=== PATIENT | female | born 1970 | race Caucasian/White ===

== ENCOUNTER → 2018-04-04 11:03 | Outpatient (CLI) | payer OTHER, SELFPAY ==
--- NOTE | 2018-04-04 11:05 | DI.RAD.S_ITS ---
PROCEDURE: XR FOOT RT MIN 3V INDICATIONS: Right dorsal, midfoot pain TECHNIQUE: 3 views of the foot were acquired. COMPARISON: , , FOOT 3V LEFT, 04/28/2014, 11:54. FINDINGS: Bones: No fractures or dislocations. No suspicious bony lesions. There is moderate metatarsus primus varus and mild hallux valgus configuration of the first ray with bunion formation at the medial first metatarsal head Soft tissues: No tibiotalar joint effusion. Achilles tendon appears normal. IMPRESSION: Podiatry related findings as discussed, without trauma. Bunion formation medial first metatarsal head. Dictated by: Robin Khan M.D. on 04/04/2018 at 11:59 Approved by: Robin Khan M.D. on 04/04/2018 at 12:00
== END ==
PROVIDERS: PCP Registered Nurse; Visit Provider Registered Nurse
DX: M21.611 Bunion of right foot (principal); M79.671 Pain in right foot
CPT/HCPCS: 73630

== ENCOUNTER → 2018-11-14 07:43 | Outpatient (CLI) | payer OTHER, SELFPAY ==
--- NOTE | 2018-11-14 07:45 | DI.MG.S_ITS ---
BILATERAL DIGITAL SCREENING MAMMOGRAM 3D/2D WITH CAD: 11/14/2018 CLINICAL: Routine screening. Comparison is made to exams dated: 04/15/2015 mammogram, 01/19/2013 mammogram, and 09/06/2011 mammogram - [facility]. The tissue of both breasts is heterogeneously dense. This may lower the sensitivity of mammography. Current study was also evaluated with a Computer Aided Detection (CAD) system. No significant masses, calcifications, or other findings are seen in either breast. There has been no significant interval change. IMPRESSION: NEGATIVE There is no mammographic evidence of malignancy. A 1 year screening mammogram is recommended. This exam was interpreted at Station ID: [id number]. NOTE: For mammograms, a report in lay terms will be sent to the patient. Approximately 15% of breast malignancies will not be visualized mammographically. In the management of a palpable breast mass, a negative mammogram must not discourage biopsy of a clinically suspicious lesion. Electronically Signed By: Ru dash/breanna:11/14/2018 12:15:49 letter sent: Normal Exam ACR BI-RADS Category 1: Negative [id number]
[2018-11-14 09:18] LABS: Alanine Aminotransferase 31 IU/L (9-52); Albumin 4.1 g/dL (3.5-5.0); Albumin Globulin Ratio 1.2 (1.0-2.8); Alkaline Phosphatase 90 U/L (38-126); Aspartate Aminotransferase 29 IU/L (14-36); BUN Creatinine Ratio 12.9 (6-22); Bilirubin Total 0.3 mg/dL (0.2-1.3); Blood Urea Nitrogen 9 mg/dL (7-17); Calcium 9.3 mg/dL (8.4-10.2); Carbon Dioxide 27 mmol/L (22-32); Chloride 104 mmol/L (98-107); Cholesterol 180 mg/dL (140-199); Estimated Glomerular Filt Rate > 60.0 mL/min (>60); Globulin 3.3 g/dL (1.7-4.1); Glucose 98 mg/dL (70-100); HDL Cholesterol 52 mg/dL (40-60); HEMOLYSIS < 15 (0-50); LDL Cholesterol Calculated 108 mg/dL (<100); Potassium 4.9 mmol/L (3.4-5.1); Sodium 140 mmol/L (137-145); Total Protein 7.4 g/dL (6.3-8.2); Triglycerides 99 mg/dL (35-150)
[2018-11-14 09:40] LABS: Thyroid Stimulating Hormone 0.92 uIU/mL (0.47-4.68)
== END ==
PROVIDERS: PCP Registered Nurse; Visit Provider Registered Nurse
DX: Z12.31 Encounter for screening mammogram for malignant neoplasm of breast (principal); E66.9 Obesity, unspecified; E03.2 Hypothyroidism due to medicaments and other exogenous substances
CPT/HCPCS: 36415; 77063; 77067; 80053; 80061; 84443

== ENCOUNTER → 2018-12-31 13:25 | Outpatient (CLI) | payer OTHER, SELFPAY ==
--- NOTE | 2018-12-31 13:27 | DI.RAD.S_ITS ---
PROCEDURE: XR TOE LT MIN 2V INDICATIONS: Left foot pinky toes injury TECHNIQUE: 3 views of the left toe(s) acquired. COMPARISON: None. FINDINGS: Bones: Minimally displaced fracture of the proximal phalanx of the fifth toe. Soft tissues: No suspicious soft tissue densities. IMPRESSION: Minimally displaced fifth toe proximal phalanx fracture. Dictated by: Misael Rios M.D. on 12/31/2018 at 13:47 Approved by: Misael Rios M.D. on 12/31/2018 at 13:49
== END ==
PROVIDERS: PCP Registered Nurse; Visit Provider Registered Nurse
DX: S92.512A Displaced fracture of proximal phalanx of left lesser toe(s), initial encounter for closed fracture (principal); M79.675 Pain in left toe(s); M79.89 Other specified soft tissue disorders; X58.XXXA Exposure to other specified factors, initial encounter
CPT/HCPCS: 73660

== ENCOUNTER → 2019-03-05 08:50 | Outpatient (CLI) | payer OTHER, SELFPAY ==
[2019-03-05 10:42] LABS: Thyroid Stimulating Hormone 1.27 uIU/mL (0.47-4.68)
== END ==
PROVIDERS: PCP Registered Nurse; Visit Provider Registered Nurse
DX: E03.9 Hypothyroidism, unspecified (principal)
CPT/HCPCS: 36415; 84443

== ENCOUNTER 2019-05-14 14:12 | Day surgery (SDC) | payer OTHER, SELFPAY ==
--- NOTE | 2019-05-14 | PATH_ITS ---
[facility] Accession Number: [id number] . 01 Material submitted: . gastrointestinal site - GASTRIC POLYPS . 02 Diagnosis: Stomach, Polyps, Biopsies: Fundic gland polyps. Negative for Helicobacter organisms by immunohistochemistry. Negative for intestinal metaplasia. Negative for dysplasia and malignancy. . [facility] 05/19/2019 1533 Local . 02 Electronically signed: . Racheal Stafford MD, Pathologist NPI- [id number] . 01 Gross description: . GASTRIC POLYPS: Received in formalin are 3 fragment(s) of damon, soft tissue measuring 0.1 x 0.1 x 0.1 cm to 0.3 x 0.2 x 0.2 cm which is entirely submitted and submitted entirely in 1 cassette(s) /[facility] [place]/15/2019 1632 Local . 02 Microscopic: . An immunohistochemical stain was performed to evaluate for Helicobacter organisms and is negative. The control stain showed appropriate reactivity. . * This test was developed and its performance characteristics determined by [facility]. It has not been cleared or approved by the U.S. Food and Drug Administration. The FDA has determined that such clearance or approval is not necessary. This test is used for clinical purposes. It should not be regarded as investigational or for research. . 02 Pathologist provided ICD-10: R10.9, K21.9 . 02 CPT . 564286, M23357 Performed at: 01 [facility] [address] [place], [place], [place] [id number] MD Beto Gutierrez MD Phone: [phone] Performed at: 02 [facility] [place] [address] [place], [place] [id number] MD Racheal Stafford MD Phone: [phone]
--- NOTE | 2019-05-14 14:08 | PM.HP.1 ---
History of Present Illness History of Present Illness Date Patient Seen: 05/14/19 Time Patient Seen: 14:08 Chief complaint: [id number] Narrative: Patient presents for colorectal screening. They have never had any previous examination for such. On further history denies any recent gastrointestinal symptoms. No nausea, vomiting, abdominal pain, loss of appetite, unexplained weight loss, change in bowel habits, diarrhea, constipation, melena, hematochezia, or bright red blood per rectum. Patient History Medical History Abnormal Pap smear of cervix (Resolved 1990) ADHD (attention deficit hyperactivity disorder) (Chronic 2011) Depression (Chronic 2001) Elbow fracture, right (Resolved) Foot fracture, right (Resolved) Foot pain (Chronic 2005) Hayfever (Chronic 1990) Herpes (Chronic 1992) Irregular periods/menstrual cycles (Resolved) Left elbow fracture (Resolved) Left hand fracture (Resolved) Migraines (Chronic 1981) Sacral fracture (Resolved 11/25/12) Urinary incontinence (Chronic 2008) Uterine cancer (Acute) Vaginal delivery (Resolved) Surgical History Anesthesia (Resolved) History of toe surgery (Resolved 2010) Status post appendectomy (Resolved) Status post hysterectomy (Resolved 06/03/17) Status post tubal ligation (Resolved 2002) Family History Brother Age: 59 DMII (diabetes mellitus, type 2) IBS (irritable bowel syndrome) Essential hypertension High cholesterol Father Diabetes mellitus Heart disease Essential hypertension High cholesterol Cerebrovascular accident (CVA), unspecified mechanism Cardiac aneurysm Mother Diabetes mellitus Essential hypertension Mental health problem Anaphylactic shock Sister Age: 53 Hyperlipidemia Depression Sister Age: 61 Mental health problem Brother No problems noted. Social History Smoking Status: Never smoker alcohol intake: current Family & Social History Family History Brother Age: 59 DMII (diabetes mellitus, type 2) IBS (irritable bowel syndrome) Essential hypertension High cholesterol Father Diabetes mellitus Heart disease Essential hypertension High cholesterol Cerebrovascular accident (CVA), unspecified mechanism Cardiac aneurysm Mother Diabetes mellitus Essential hypertension Mental health problem Anaphylactic shock Sister Age: 53 Hyperlipidemia Depression Sister Age: 61 Mental health problem Brother No problems noted. Tobacco & Substance use: Smoking Status Never smoker alcohol intake current Meds Home Medications and Allergies Home Medications Medication Instructions Recorded Confirmed Type CA PANTOTHENATE/FOLIC ACID/VIT 1 tab PO QDAY #0 07/11/11 04/08/19 History (MULTIVITAMIN) lamotrigine [Lamictal] 200 mg PO SEE INSTRUCTIONS #30 tab 01/17/17 04/08/19 Rx venlafaxine [Effexor XR] 0 PO SEE INSTRUCTIONS #60 cer 01/17/17 04/08/19 Rx eletriptan [Relpax] 40 mg PO PRN PRN #10 tab 05/27/17 04/08/19 Rx lisdexamfetamine [Vyvanse] 70 mg PO #0 05/27/17 04/08/19 History trazodone 50 mg PO HS #0 05/27/17 04/08/19 History magnesium PO 04/24/18 04/08/19 History valacyclovir 500 mg tablet 500 mg PO TID #9 tab 05/27/18 04/08/19 Rx omeprazole 40 mg capsule,delayed 40 mg PO DAILY #120 cap 03/06/19 04/08/19 Rx release ranitidine HCl 300 mg capsule 300 mg PO BEDTIME #90 cap 03/06/19 04/08/19 Rx Allergies Allergy/AdvReac Type Severity Reaction Status Date / Time No Known Drug Allergies Allergy Unverified 04/08/19 10:30 Review of Systems Review of Systems ROS Unobtainable: All systems reviewed & are unremarkable except as noted in HPI and below Exam Narrative Exam Narrative: General-adult ___no acute distress, well nourished HEENT-moist mucous membranes, no scleral icterus Neck-supple with full range of motion, no lymphadenopathy Chest- no labored respirations, clear to auscultation bilaterally Cardiac-regular rate and rhythm Abdomen-soft, nontender, non distended Extremities-no edema, warm well perfused Neurological-alert and oriented x 3. No focal deficits Skin-normal temperature and turgor, no rashes or ulcers Assessment & Plan Assessment and plan (1) Screening for colon cancer: Current visit: No Status: Acute Assessment & Plan narrative: Insert endoscopy assessment plan
--- NOTE | 2019-05-14 14:43 | PM.PREOP ---
Pre-operative Note Interval Note History & Physical reviewed/Exam performed by Physician: Yes Changes to H&P: No ASA Class (for procedural sedation): I
[2019-05-14 14:46] VITALS: BMI 32.1
[2019-05-14 15:00] VITALS: BP 119/77; PULSE 79; RESP 15; TEMP 36.3; O2SAT 99
[2019-05-14] MEDS: SODIUM CHLORIDE 0.9% 1,000 ML 200 ML IV (15:03)
[2019-05-14] MEDS: LIDOCAINE 4% SOLN 50 ML 20 ML TOP (15:20)
--- NOTE | 2019-05-14 15:20 | PM.OP.ENDO ---
Operative Date/Time/Diagnoses Date of procedure: 05/14/19 Time of procedure: 15:20 Pre-op diagnosis: Gastroesophageal reflux Post-op diagnosis: same Procedure & Clinicians Study performed: Esophagoduodenoscopy Same procedure as scheduled: Yes Indications: 48-year-old female with longstanding gastroesophageal reflux presents for an EGD Surgeon: Onur Vidal Procedure Notes SCOAP/Timeout: Performed Procedure in detail: The scope was inserted into the mouth and advanced into the esophagus. The stomach was entered and insufflated. The pyloric channel was entered and the 1st portion of the duodenum was inspected and was negative for ulcers. The stomach was notable for numerous gastric polyps less than a cm and throughout the entirety of the stomach. Several biopsies of these polyps were taken the sites were found to be hemostatic. The scope was retroflexed and there was no evidence of hiatal hernia. Scope was then carefully withdrawn into the esophagus where the Z-line was observed there was no evidence of esophagitis or Marino's. The stomach was then desufflated the exam ended. Scope withdrawal time: NA Findings: other findings (numerous gastric polyps) Complications: none Impression: gastric polyps Post-procedure Recommendations: Continue medication(s) (omeprazole) Disposition: same day surgery
[2019-05-14] MEDS: fentaNYL 250 MCG/5 ML INJ IV (15:34)
[2019-05-14] MEDS: MIDAZOLAM 5 MG/5 ML VIAL IV (15:35)
[2019-05-14 15:38] VITALS: BP 125/76; PULSE 89; RESP 12; TEMP 36.3; O2SAT 94
[2019-05-14 15:43] VITALS: BP 130/75; PULSE 92; RESP 13; O2SAT 96
[2019-05-14 15:48] VITALS: BP 104/50; PULSE 90; RESP 14; O2SAT 95
[2019-05-14 15:50] VITALS: BP 123/68; PULSE 94; RESP 17; O2SAT 94
[2019-05-14 15:56] VITALS: BP 115/75; PULSE 95; RESP 14; TEMP 36.5; O2SAT 98
--- NOTE | 2019-05-19 18:54 | PM.HP.1 ---
History of Present Illness History of Present Illness Date Patient Seen: 05/19/19 Time Patient Seen: 18:55 Chief complaint: [id number] Narrative: 48-year-old female referred to the General surgery Clinic for evaluation of gastroesophageal reflux disease. She has chronic reflux for at least 5 years and typically experiences heart burn, no regurgitation, no asthma, no dysphagia. Her symptoms are relatively controlled with 40 mg of omeprazole daily, but she has breakthrough episodes espically triggered by spicy food. She has never had an upper endoscopy. She has no unintended weight loss, dysphagia, voice changes abdominal pain nausea vomiting. Patient History Medical History Abnormal Pap smear of cervix (Resolved 1990) ADHD (attention deficit hyperactivity disorder) (Chronic 2011) Depression (Chronic 2001) Elbow fracture, right (Resolved) Foot fracture, right (Resolved) Foot pain (Chronic 2005) Hayfever (Chronic 1990) Herpes (Chronic 1992) Irregular periods/menstrual cycles (Resolved) Left elbow fracture (Resolved) Left hand fracture (Resolved) Migraines (Chronic 1981) Sacral fracture (Resolved 11/25/12) Urinary incontinence (Chronic 2008) Uterine cancer (Acute) Vaginal delivery (Resolved) Surgical History Anesthesia (Resolved) History of toe surgery (Resolved 2010) Status post appendectomy (Resolved) Status post hysterectomy (Resolved 06/03/17) Status post tubal ligation (Resolved 2002) Family History Brother Age: 59 DMII (diabetes mellitus, type 2) IBS (irritable bowel syndrome) Essential hypertension High cholesterol Father Diabetes mellitus Heart disease Essential hypertension High cholesterol Cerebrovascular accident (CVA), unspecified mechanism Cardiac aneurysm Mother Diabetes mellitus Essential hypertension Mental health problem Anaphylactic shock Sister Age: 53 Hyperlipidemia Depression Sister Age: 61 Mental health problem Brother No problems noted. Social History household members: spouse Smoking Status: Never smoker alcohol intake: current Family & Social History Family History Brother Age: 59 DMII (diabetes mellitus, type 2) IBS (irritable bowel syndrome) Essential hypertension High cholesterol Father Diabetes mellitus Heart disease Essential hypertension High cholesterol Cerebrovascular accident (CVA), unspecified mechanism Cardiac aneurysm Mother Diabetes mellitus Essential hypertension Mental health problem Anaphylactic shock Sister Age: 53 Hyperlipidemia Depression Sister Age: 61 Mental health problem Brother No problems noted. Social History: household members spouse Tobacco & Substance use: Smoking Status Never smoker alcohol intake current Meds Home Medications and Allergies Home Medications Medication Instructions Recorded Confirmed Type CA PANTOTHENATE/FOLIC ACID/VIT 1 tab PO QDAY #0 07/11/11 04/08/19 History (MULTIVITAMIN) Vyvanse 70 mg PO DAILY #0 05/27/17 05/14/19 History eletriptan [Relpax] 40 mg PO PRN PRN #10 tab 05/27/17 05/14/19 Rx trazodone 50 mg PO HS #0 05/27/17 05/14/19 History magnesium PO 04/24/18 04/08/19 History valacyclovir 500 mg tablet 500 mg PO TID #9 tab 05/27/18 05/14/19 Rx omeprazole 40 mg capsule,delayed 40 mg PO DAILY #120 cap 03/06/19 05/14/19 Rx release ranitidine HCl 300 mg capsule 300 mg PO BEDTIME #90 cap 03/06/19 05/14/19 Rx lamotrigine [Lamictal] 400 mg PO BEDTIME 05/14/19 05/14/19 History venlafaxine [Effexor XR] 300 mg PO DAILY 05/14/19 05/14/19 History Allergies Allergy/AdvReac Type Severity Reaction Status Date / Time No Known Drug Allergies Allergy Verified 05/14/19 14:44 Review of Systems Review of Systems ROS Unobtainable: All systems reviewed & are unremarkable except as noted in HPI and below Exam Vital Signs (past 8 hours): Oxygen Delivery Method Room Air Oxygen Flow Rate 2 Narrative Exam Narrative: General-adult female no acute distress, well nourished HEENT-moist mucous membranes, no scleral icterus Neck-supple with full range of motion, no lymphadenopathy Chest- no labored respirations, clear to auscultation bilaterally Cardiac-regular rate and rhythm Abdomen-soft, nontender, non distended Extremities-no edema, warm well perfused Neurological-alert and oriented x 3. No focal deficits Skin-normal temperature and turgor, no rashes or ulcers Assessment & Plan Assessment and plan (1) GERD (gastroesophageal reflux disease): Qualifiers: Esophagitis presence: esophagitis presence not specified Qualified Code(s): K21.9 - Gastro-esophageal reflux disease without esophagitis Current visit: No Status: Chronic Assessment & Plan narrative: 48-year-old female with symptomatic gastroesophageal reflux disease. We discussed the nature of reflux disease and its potential complications including the development of Marino's and esophageal cancer. We discussed possible causes of her reflux disease including hiatal hernia as well as aggravating factors as related to her lifestyle. I recommended that she undergo esophagoduodenoscopy to assess for complications relating to longstanding reflux as well as evaluation for any anatomical factors contributing to her reflux. Her risk factors for the development of Barrets include chronic reflux, race and obesity. We discussed risks of the procedure including bleeding perforation missed diagnosis, need for further procedure, and sedation risks. Her questions have been answered and will schedule at her earliest convenience
== END 2019-05-14 16:16 | disposition home or self-care (01) ==
PROVIDERS: PCP Registered Nurse; Visit Provider Surgery
PROC: 0DJ08ZZ Inspection of Upper Intestinal Tract, Via Natural or Artificial Opening Endoscopic (ICD-10-PCS; CPT 43235; principal; 2019-05-14 16:00)
DX: K21.9 Gastro-esophageal reflux disease without esophagitis (principal); K31.7 Polyp of stomach and duodenum
CPT/HCPCS: 43239; J2250; J3010

== ENCOUNTER 2020-01-22 14:58 | Emergency (ER) | payer OTHER, SELFPAY ==
[2020-01-22 15:18] VITALS: BP 124/73; PULSE 87; RESP 16; TEMP 36.4; O2SAT 99; BMI 33.2
--- NOTE | 2020-01-22 15:24 | PC.NURSE ---
was spraying hose at home and states wearing loose slippery sandals. lost footing and fell over a baby stroller and another object injuring her L lateral foot. contusion to the lateral top of the foot and some swelling noted. able to partially bear weight. +CSM.
--- NOTE | 2020-01-22 15:26 | DI.RAD.S_ITS ---
PROCEDURE: XR FOOT LT MIN 3V INDICATIONS: fall TECHNIQUE: 3 views of the foot were acquired. COMPARISON: [facility], CR, XR FOOT RT MIN 3V, 04/04/2018, 10:52. [facility], CR, FOOT 3V LEFT, 04/28/2014, 11:54. FINDINGS: Bones: No fractures or dislocations. No suspicious bony lesions. There is a transverse fracture at the proximal diaphysis of the fifth metatarsal bone. Incidental note is made of mild metatarsus primus varus and hallux on this morphology. Soft tissues: No tibiotalar joint effusion. Achilles tendon appears normal. IMPRESSION: Acute appearing fracture across the base of the fifth metatarsal diaphysis. This may extend slightly into the articular surface medially. No additional trauma found. Dictated by: Robin Khan M.D. on 01/22/2020 at 16:12 Approved by: Robin Khan M.D. on 01/22/2020 at 16:13
--- NOTE | 2020-01-22 16:08 | ED.LOWEXIN ---
HPI - Extremity Injury (Lower) <JONNA Vallejo - Last Filed: 01/22/20 18:55> General Chief Complaint: Extremity Injury, Lower Stated Complaint: LEFT FOOT INJURY Time Seen by Provider: 01/22/20 15:18 Source: patient Mode of arrival: Wheelchair Limitations: no limitations History of Present Illness HPI Narrative: Of the patient's very pleasant 49-year-old female nonsmoker who presents with a chief complaint of left foot injury. She states she tripped over a hose and landed awkwardly on her left foot. She states she has history of left foot fracture. She states she was unable to weight bear afterwards. Denies any other injuries denies hitting her head any neck or back pain. Related Data Home Medications Medication Instructions Recorded Confirmed Vyvanse 70 mg PO DAILY #0 05/27/17 01/15/20 trazodone 50 mg PO HS #0 05/27/17 01/15/20 lamotrigine [Lamictal] 400 mg PO BEDTIME 05/14/19 01/15/20 venlafaxine [Effexor XR] 300 mg PO DAILY 05/14/19 01/15/20 calcium-magnesium 300 mg-300 mg 1 tab PO DAILY 01/15/20 01/15/20 tablet Previous Rx's Medication Instructions Recorded eletriptan [Relpax] 40 mg PO PRN PRN #10 tab 05/27/17 omeprazole 40 mg capsule,delayed 40 mg PO DAILY #120 cap 03/06/19 release valacyclovir 500 mg tablet 500 mg PO TID #9 tab 01/15/20 cimetidine 200 mg tablet 200 mg PO BEDTIME #90 tab 01/21/20 hydrocodone-acetaminophen [[place]] 1 tab PO Q4-6H PRN #10 tab 01/22/20 Allergies Allergy/AdvReac Type Severity Reaction Status Date / Time No Known Drug Allergies Allergy Verified 01/22/20 15:18 Review of Systems <JONNA Vallejo - Last Filed: 01/22/20 18:55> Review of Systems Narrative: GENERAL: Denies chills, fatigue, malaise, fever, sweats. HEENT: Denies sinus pain, ear pain, sore throat, difficulty swallowing, dizziness. RESPIRATORY: Denies dyspnea, cough, wheezing, hemoptysis, sputum. CARDIOVASCULAR: Denies chest pain, palpitations, orthopnea, edema, GASTROINTESTINAL: Denies nausea, vomiting, abdominal pain, diarrhea, constipation, melena. : Denies dysuria, frequency, incontinence, hematuria, urinary retention. MUSCULOSKELETAL: See HPI SKIN: Denies rash, skin lesions, or other NEUROLOGIC: Denies weakness, headache, numbness, change in speech, confusion, seizures, incoordination. PSYCHIATRIC: No concerning psychosocial issues. 12 point review of systems is negative except for those stated above Patient History <JONNA Vallejo - Last Filed: 01/22/20 18:55> Medical History Abnormal Pap smear of cervix (Resolved 1990) ADHD (attention deficit hyperactivity disorder) (Chronic 2011) Depression (Chronic 2001) Elbow fracture, right (Resolved) Epidermal cyst (Acute) Foot fracture, right (Resolved) Foot pain (Chronic 2005) Hayfever (Chronic 1990) Herpes (Chronic 1992) Irregular periods/menstrual cycles (Resolved) Left elbow fracture (Resolved) Left hand fracture (Resolved) Migraines (Chronic 1981) Sacral fracture (Resolved 11/25/12) Urinary incontinence (Chronic 2008) Uterine cancer (Acute) Vaginal delivery (Resolved) Surgical History Anesthesia (Resolved) History of toe surgery (Resolved 2010) Status post appendectomy (Resolved) Status post hysterectomy (Resolved 06/03/17) Status post tubal ligation (Resolved 2002) Family History Brother Age: 60 DMII (diabetes mellitus, type 2) IBS (irritable bowel syndrome) Essential hypertension High cholesterol Father Diabetes mellitus Heart disease Essential hypertension High cholesterol Cerebrovascular accident (CVA), unspecified mechanism Cardiac aneurysm Mother Diabetes mellitus Essential hypertension Mental health problem Anaphylactic shock Sister Age: 54 Hyperlipidemia Depression Sister Age: 62 Mental health problem Brother No problems noted. Social History household members: spouse Smoking Status: Never smoker alcohol intake: current Smoking Status: Never smoker alcohol intake frequency: holidays/special occasions only Substance Use Type: does not use Exam <JONNA Vallejo Last Filed: 01/22/20 18:55> Narrative Exam Narrative: GENERAL: This is a well-nourished, well-developed patient, in no acute distress HEAD: Atraumatic. Normocephalic. No temporal or scalp tenderness. EYES: Pupils equal round and reactive. Extraocular motions intact. No scleral icterus. No injection or drainage. ENT: Nose without bleeding, purulent drainage or septal hematoma. Throat without erythema, tonsillar hypertrophy or exudate. Uvula midline. Airway patent. NECK: Trachea midline. No JVD or lymphadenopathy. Supple, nontender, no meningeal signs. CARDIOVASCULAR: Regular rate and rhythm RESPIRATORY: No cough. No increased respiratory effort. No accessory muscle use. GASTROINTESTINAL: Abdomen soft, non-tender, nondistended. Extremities: Pain to palpation lateral aspect of left foot. Positive pedal pulses left foot. Wiggling left toes. Cap refill less than 2 seconds BACK: Nontender without deformity or crepitance. No flank tenderness. NEURO: AOx3. SKIN: No rash or erythema on visible skin. No erythema or ecchymosis noted on lateral aspect of left foot Initial Vital Signs Initial Vital Signs: Vital Signs Temperature 97.6 F 01/22/20 15:18 Pulse Rate 87 01/22/20 15:18 Respiratory Rate 16 01/22/20 15:18 Blood Pressure 124/73 01/22/20 15:18 Pulse Oximetry 99 01/22/20 15:18 <Roly Nick DO - Last Filed: 01/22/20 18:59> Initial Vital Signs Initial Vital Signs: Vital Signs Temperature 97.6 F 01/22/20 15:18 Pulse Rate 87 01/22/20 15:18 Respiratory Rate 16 01/22/20 15:18 Blood Pressure 124/73 01/22/20 15:18 Pulse Oximetry 99 01/22/20 15:18 Procedures <JONNA Vallejo Last Filed: 01/22/20 18:55> Orthopedic Splinting/Casting Injury #1: Side: left Lower Extremity Injury Location: foot Lower Extremity Immobilizer: post-op shoe Other Orthopedic Equipment: crutches Post splinting neuro exam: intact Post splinting vascular exam: intact Placed by: Nursing Course <JONNA Vallejo Last Filed: 01/22/20 18:55> Orders Ordered: ED Orders 01/22/20 15:26 XR foot LT min 3V Stat Discontinued Medications Hydrocodone Bitart/Acetaminophen ([place] 5/325) 1 tab PO NOW ONE Stop: 01/22/20 16:40 Last Admin: 01/22/20 17:13 Dose: 1 tab Documented by: LINH Vital Signs Vital signs: Vital Signs - 8 hr 01/22/20 15:18 01/22/20 17:43 Temperature 97.6 F Pulse Rate 87 74 Respiratory Rate 16 14 Blood Pressure 124/73 Blood Pressure [Right Arm] 127/63 Pulse Oximetry 99 99 <Roly Nick DO - Last Filed: 01/22/20 18:59> Orders Ordered: ED Orders 01/22/20 15:26 XR foot LT min 3V Stat Discontinued Medications Hydrocodone Bitart/Acetaminophen ([place] 5/325) 1 tab PO NOW ONE Stop: 01/22/20 16:40 Last Admin: 01/22/20 17:13 Dose: 1 tab Documented by: LINH Vital Signs Vital signs: Vital Signs - 8 hr 01/22/20 15:18 01/22/20 17:43 Temperature 97.6 F Pulse Rate 87 74 Respiratory Rate 16 14 Blood Pressure 124/73 Blood Pressure [Right Arm] 127/63 Pulse Oximetry 99 99 MDM - Extremity Injury (Lower) <JONNA Vallejo - Last Filed: 01/22/20 18:55> Imaging Data Extremity x-ray #1: Radiologist's Impression: [address] [address] XRay Report Signed Patient: Marylou Franco [facility]#: [id number] : 1970Acct:[id number] Age/Sex: 49 / FDate of Service: 01/22/20 Loc: ED Accession Number: [id number] Procedure: XR foot LT min 3V Ordering Provider: Chary Joy PROCEDURE: XR FOOT LT MIN 3V INDICATIONS: fall TECHNIQUE: 3 views of the foot were acquired. COMPARISON: [facility], [place], XR FOOT RT MIN 3V, 04/04/2018, 10:52. [facility], CR, FOOT 3V LEFT, 04/28/2014, 11:54. FINDINGS: Bones: No fractures or dislocations. No suspicious bony lesions. There is a transverse fracture at the proximal diaphysis of the fifth metatarsal bone. Incidental note is made of mild metatarsus primus varus and hallux on this morphology. Soft tissues: No tibiotalar joint effusion. Achilles tendon appears normal. IMPRESSION: Acute appearing fracture across the base of the fifth metatarsal diaphysis. This may extend slightly into the articular surface medially. No additional trauma found. Dictated by: Robin Khan M.D. on 01/22/2020 at 16:12 Approved by: Robin Khan M.D. on 01/22/2020 at 16:13 [facility] Narrative Medical decision making narrative: The patient is a 49-year-old female nonsmoker presents with a chief complaint of foot pain. She has a fracture on her x-ray of her 5th metatarsal. She is placed in a postoperative shoe, given [place] for pain, given crutches. She is neurovascularly intact throughout her stay in the emergency department. Discussed at length following up with primary care provider as well as [facility]. Patient has no questions or concerns upon discharge and states understanding return precautions as well as follow-up care. Discharge Plan Departure Patient Disposition: Home Clinical Impression: Closed fracture of fifth metatarsal bone Qualifiers: Encounter type: initial encounter Fracture alignment: nondisplaced Laterality: left Qualified Code(s): S92.355A - Nondisplaced fracture of fifth metatarsal bone, left foot, initial encounter for closed fracture Discharge Date/Time: 01/22/20 17:44 Instructions: How to Use Crutches, DI for Foot Fracture Activity Restrictions/Additional Instructions: Thank you for trusting us with your care today As I discussed, your x-rays concerning for a fracture of your 5th metatarsal Please use rest ice compression elevation. We have given you a postoperative shoe and crutches. Please follow-up with primary care provider as well as [facility] I have included the contact information below I sent a prescription of hydrocodone with Tylenol to [facility] You have been prescribed narcotic medications. While on these medications you cannot drive or operate heavy machinery. Additionally you cannot sign legal documents or perform any duties such as this. 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 Prescriptions: New hydrocodone-acetaminophen [[place]] 5-325 mg tablet 1 tab PO Q4-6H PRN (Reason: pain) Qty: 10 RF: 0 No Action eletriptan [Relpax] 40 MG tablet 40 mg PO PRN PRNQty: 10 RF: 2 trazodone 50 MG tablet 50 mg PO HS Qty: 0 RF: 0 Vyvanse 70 MG capsule 70 mg PO DAILY Qty: 0 RF: 0 omeprazole 40 mg capsule,delayed release(DR/EC) 40 mg PO DAILY Qty: 120 RF: 3 cimetidine 200 mg tablet 200 mg PO BEDTIME Qty: 90 RF: 0 calcium-magnesium 300-300 mg tablet 1 tab PO DAILY RF: 0 valacyclovir [Valtrex] 500 mg tablet 500 mg PO TID Qty: 9 RF: 0 lamotrigine [Lamictal] 200 MG tablet 400 mg PO BEDTIME RF: 0 venlafaxine [Effexor XR] 150 MG capsule,extended release 24hr 300 mg PO DAILY RF: 0 Referrals: [facility] [Provider Group] Nadir Noonan ARNP [Advanced Step Down Nurse] - Bibiana Mayfield ARNP [Primary Care Provider] - <Roly Nick, - Last Filed: 01/22/20 18:59> [facility] ED Attending [facility] Attestation: Dr Nick Co-Sign Statement: I was available for consultation during this patient's emergency department visit. This chart is signed by myself for administrative purposes only. I did not have direct contact with this patient during this visit. They were seen independently by the APC.
[2020-01-22] MEDS: HYDROCODONE/ACET 5/325 TABLET 1 TAB PO (17:13)
[2020-01-22 17:43] VITALS: BP 127/63; PULSE 74; RESP 14; O2SAT 99
== END 2020-01-22 17:44 | disposition home or self-care (01) ==
PROVIDERS: Emergency Provider Nurse Practitioner Family; PCP Registered Nurse
DX: S92.355A Nondisplaced fracture of fifth metatarsal bone, left foot, initial encounter for closed fracture (principal); W22.8XXA Striking against or struck by other objects, initial encounter
CPT/HCPCS: 73630; 99283; 99284

== ENCOUNTER → 2020-03-15 12:07 | Outpatient (CLI) | payer OTHER, SELFPAY ==
[2020-03-16 15:36] LABS: COVID19 Sendout Not Detected (Not Detect)
== END ==
PROVIDERS: PCP Registered Nurse; Visit Provider Physician Assistant
DX: Z01.812 Encounter for preprocedural laboratory examination (principal)
CPT/HCPCS: 87635

== ENCOUNTER 2020-03-18 12:16 | Day surgery (SDC) | payer OTHER, SELFPAY ==
[2020-03-15 10:55] VITALS: BMI 34.2
[2020-03-18] VITALS (9 sets, daily range): BP systolic 97–120; BP diastolic 51–79; PULSE 74–94; RESP 11–20; TEMP 35.9–36.8; O2SAT 84–98; BMI 34.2
--- NOTE | 2020-03-18 | DI.RAD.S_ITS ---
PROCEDURE: XR FOOT LT 2V INDICATIONS: ORIF 5TH METARSAL TECHNIQUE: For views of the foot were acquired. COMPARISON: [facility], CR, XR FOOT LT MIN 3V, 01/22/2020, 15:50. [facility], CR, XR FOOT RT MIN 3V, 04/04/2018, 10:52. FINDINGS: Bones: No fractures or dislocations, and normal alignment has been established by placement of a longitudinally oriented 5th metatarsal fixation screw, crossing an area of previously identified fracture at the proximal diaphysis in this area.. No suspicious bony lesions. Soft tissues: No tibiotalar joint effusion. Achilles tendon appears normal. IMPRESSION: Normal alignment after cancellous screw fracture fixation 5th metatarsal proximal diaphysis. Dictated by: Robin Khan M.D. on 03/18/2020 at 16:16 Approved by: Robin Khan M.D. on 03/18/2020 at 16:17
[2020-03-18] MEDS: LACTATED RINGERS 1,000 ML 42 ML IV (13:17)
--- NOTE | 2020-03-18 13:45 | PM.PREOP ---
Pre-operative Note COVID-19 COVID-19 status: Negative Interval Note History & Physical reviewed/Exam performed by Physician: Yes Changes to H&P: No
--- NOTE | 2020-03-18 14:11 | PM.OP.1 ---
Operative Date/Time/Diagnoses Date of procedure: 03/18/20 Time of procedure: 14:11 Pre-op diagnosis: Left 5th proximal metatarsal fracture. The metaphyseal diaphyseal junction.s99.192 Post-op diagnosis: same Procedure & Clinicians Procedure: Open reduction internal fixation Serrano fracture left CPT code 39114 Same procedure as scheduled: Yes Indications: Patient is a 49-year-old female with a left 5th metatarsal metadiaphyseal junction fracture. This happened approximately 6 weeks ago. She has been nonweightbearing. She presents to me as a consult regarding her fracture. She has persistent pain the fracture site persistent fracture presence on x-ray without any significant signs of healing. Discussed that this fracture can take over 20 weeks to heal with non operative treatment and does have a higher risk for nonunion or delayed union. We discussed surgical treatment would allow her to be weight-bearing at 2 weeks postop and heels more reliably in a more rapid fashion. The patient would like to proceed with surgical treatment. The risks and benefits of the procedure have been discussed with the patient even opportunity to ask questions. The risks of surgery include but are not limited to infection, malunion, nonunion, persistence of pain, damage to nerves and blood vessels, posttraumatic arthritis, DVT, PE, cardiopulmonary complications and . The patient expressed a thorough understanding of the risks and benefits of surgery and has elected to proceed. Consent was signed in the office. Surgeon: Cathryn Huston Click Yes if Unassisted: Yes Anesthesia Type: General and Local Operative Notes Findings: Metadiaphyseal junction fracture left foot 5th metatarsal Closure Type: primary Specimen(s): none sent Applied: implant(s) (Arthrex Serrano screw 5.5 x 45 mm solid) Estimated Blood Loss (mL): 2 Blood products transfused: none Tourniquet time (min): 32 Procedure in detail: Patient was seen in the preoperative area. Site of surgery was marked and informed consent confirmed. Final questions were answered. The patient was then brought back to the operating room by the anesthesia team in position on the operative table in supine position. A ipsilateral well-padded thigh tourniquet was placed. A contralateral SCD was placed. An ipsilateral thigh bump was placed. The left lower extremities prepped and draped in the standard sterile fashion. A formal time-out procedure was performed confirming the patient's side and site of surgery administration of appropriate preoperative antibiotics. All were in agreement. Attention was turned the left 5th metatarsal. The bony landmarks were marked out using fluoroscopy and a small incision approximately 1 cm proximal to the base of 5th metatarsal was as made through the skin. Blunt dissection was taken down to the level of the proximal aspect of the 5th metatarsal. The wire was placed in the high and inside position confirmed on multiplanar fluoroscopy. This was then overdrilled. And and next a sequential taps were utilized. Once there was good interference with the tapping were able to rotate the hole metatarsal with the tap this size screw was selected. The wire was measured. And a 5.5 x 45 mm screw was selected. The wires were then removed and the solid screw was advanced across the fracture site making sure that all of the threads across the fracture site and good compression was obtained. Once this was completed was confirmed on multiplanar fluoroscopy to be adequate alignment and compression. Tourniquet was released. The wound was irrigated and closed with 4-0 Monocryl and 4 0 nylon suture. A well-padded splint was placed and the patient was woken from anesthesia and taken to recovery room in good condition. There no immediate complications from this procedure. All counts were correct Complications: none Post-operative Condition: stable Disposition: PACU Plan for aftercare: Nonweightbearing and splint x2 weeks and follow up in the clinic with her boot. Will start weight-bearing at 2 weeks. Aspirin for DVT prophylaxis.
[2020-03-18] MEDS: CEFAZOLIN 2 GM/100 ML FROZ.PIGGY IV (14:18)
--- NOTE | 2020-03-18 14:45 | SUR.OPER ---
Supine on padded OR bed, head on pillow, arms secured on padded arm boards at <90 degrees abduction, legs uncrossed, safety belt at abdomen, tape over blanket over right lower leg. left leg prepped and draped in sterile field on blanket stacks. bump under left hip
[2020-03-18] MEDS: BUPIVACAINE 0.25% W/ EPI 30 ML VIAL INJ (14:53)
[2020-03-18] MEDS: OXYCODONE/ACETAMINOPHEN 5/325 TABLET 1 TAB PO ×2 (15:45→16:03)
[2020-03-18] MEDS: fentaNYL 100 MCG/2 ML INJ IV (15:59)
--- NOTE | 2020-03-18 16:46 | SUR.PHASEI ---
Patient vital signs stable except that she drops into the upper 80%'s O2 and then returns to the 90%'s on her own. Transferred to phase 2 and reported off to receiving RN. Placed patient on O2 monitor in phase 2 for continued O2 monitoring.
--- NOTE | 2020-03-18 16:52 | SUR.PHASEII ---
Pt rcvd in pacu 2, report from Rhonda, pt placed on oxygen sat machine continuous monitoring for borderline sats. Holding above 93, plan to monitor for 10 minutes. Pt VSS, capillary refill wnl to left foot.
--- NOTE | 2020-03-18 16:59 | SUR.PHASEII ---
Pt given all dc instructions by JATINDER Ellis and pt verbalizes understanding. Araselie called for p/u. Pt assisted getting dressed. oxygen sats maintained above 94% for over 10 minutes now.
--- NOTE | 2020-03-18 17:23 | SUR.PHASEII ---
Pt dcd in stable condition via wc to curbside private vehicle and . Reminded to fill the pain rx in discharge envelope with pt and both and pt verbalize understanding.
== END 2020-03-18 17:25 | disposition home or self-care (01) ==
PROVIDERS: PCP Registered Nurse; Referring Provider Orthopaedic Surgery Foot and Ankle Surgery; Visit Provider Orthopaedic Surgery Foot and Ankle Surgery
PROC: (CPT 28485; principal; 2020-03-18 13:45)
DX: S99.192A Other physeal fracture of left metatarsal, initial encounter for closed fracture (principal); W01.0XXA Fall on same level from slipping, tripping and stumbling without subsequent striking against object, initial encounter
CPT/HCPCS: 28485; 73620; 76000; J0690; J1100; J1885; J2250; J2405; J2704; J3010

== ENCOUNTER → 2021-02-09 10:27 | Outpatient (CLI) | payer OTHER, SELFPAY ==
[2021-02-09 11:52] LABS: Add Manual Diff / Slide Review NO; Basophils Absolute Auto 0 /uL (0-100); Basophils Percent Auto 0.6 % (0-2); Eosinophils Absolute Auto 100 /uL (0-450); Eosinophils Percent Auto 2.3 % (2-4); Hematocrit 41.2 % (36-46); Hemoglobin 13.9 g/dL (12.0-16.0); Lymphocytes Absolute Auto 1600 /uL (1100-4500); Mean Corpuscular HGB Conc 33.7 % (30-36); Mean Corpuscular Hemoglobin 30.5 PG (26-34); Mean Corpuscular Volume 90.6 fL (80-100); Monocytes Absolute Auto 400 /uL (0-900); Monocytes Percent Auto 6.6 % (3-14); Neutrophils Absolute Auto 3500 /uL (1500-7000); Neutrophils Percent Auto 62.5 % (50-75); Platelet Count 255 X10^3/uL (150-400); Red Blood Cell Count 4.55 X10^6/uL (4.0-5.2); Red Cell Distribution Width 13.2 % (11.6-14.8); White Blood Cell Count 5.6 X10^3/uL (4.5-11.0)
[2021-02-09 12:39] LABS: Total Iron Binding Capacity 285 ug/dL (265-497)
[2021-02-09 13:06] LABS: Ferritin 15 ng/mL (11-264)
[2021-02-09 13:37] LABS: Folate 11.2 ng/mL (2.76-20.0); Vitamin B12 425 pg/mL (239-931)
== END ==
PROVIDERS: PCP Nurse Practitioner Family; Referring Provider Registered Nurse; Visit Provider Registered Nurse
DX: D64.9 Anemia, unspecified (principal)
CPT/HCPCS: 36415; 82607; 82728; 82746; 83550; 85025

== ENCOUNTER 2022-10-01 18:39 | Emergency (ER) | payer OTHER, SELFPAY ==
[2022-10-01 18:50] VITALS: BP 132/67; PULSE 79; RESP 14; TEMP 36.6; O2SAT 100; BMI 33.0
--- NOTE | 2022-10-01 18:52 | DI.RAD.S_ITS ---
PROCEDURE: XR WRIST RT MIN 3V INDICATIONS: Fall, foot and wrist pain TECHNIQUE: 3 views of the wrist were acquired. COMPARISON: None. FINDINGS: Bones: No fractures or dislocations. No suspicious bony lesions. Soft tissues: No suspicious soft tissue calcifications. IMPRESSION: No visualized acute fracture or dislocation. However, if clinical concern and/or pain persist, short interval imaging followup in 7-10 days is recommended, as occult injury cannot be definitively excluded. Dictated by: Alice Knowles M.D. on 10/01/2022 at 19:24 Approved by: Alice Knowles M.D. on 10/01/2022 at 19:24
--- NOTE | 2022-10-01 18:52 | DI.RAD.S_ITS ---
PROCEDURE: XR FOOT RT MIN 3V INDICATIONS: Fall, foot and wrist pain TECHNIQUE: 3 views of the foot were acquired. COMPARISON: [facility] [place], [place], XR FOOT 3 VIEWS WEIGHT BEARING LEFT, 07/05/2020, 15:24. [facility], CR, XR FOOT LT 2V, 03/18/2020, 14:39. FINDINGS: Bones: No fractures or dislocations. No suspicious bony lesions. Soft tissues: No tibiotalar joint effusion. Achilles tendon appears normal. IMPRESSION: No visualized acute fracture or dislocation. However, if clinical concern and/or pain persist, short interval imaging followup in 7-10 days is recommended, as occult injury cannot be definitively excluded. Dictated by: Alice Knowles M.D. on 10/01/2022 at 19:24 Approved by: Alice Knowles M.D. on 10/01/2022 at 19:24
--- NOTE | 2022-10-01 19:36 | ED_ITS ---
HPI - General Adult General Chief complaint: Extremity Injury, Upper Stated complaint: broke? R hand, swelling,difficult to move Time Seen by Provider: 10/01/22 18:58 Source: patient Mode of arrival: Ambulatory Limitations: no limitations History of Present Illness HPI narrative: Patient is a 51-year-old female here for evaluation of a right hand injury and also a right foot injury. It occurred after she slipped and fell at home in her driveway. She has been ambulatory. It occurred several hours prior to arrival. No prior injuries to these areas. No other injuries from the event. Related Data Home Medications Medication Instructions Recorded Confirmed lisdexamfetamine 70 mg capsule 70 mg PO DAILY ##0 05/27/17 12/18/21 (Vyvanse) trazodone 50 mg tablet 50 mg PO HS ##0 05/27/17 12/18/21 lamotrigine 200 mg tablet 400 mg PO BEDTIME 05/14/19 12/18/21 (Lamictal) calcium-magnesium 300 mg-300 mg 1 tab PO DAILY 01/15/20 12/18/21 tablet lorazepam 0.5 mg tablet (Ativan) 0.5 mg PO DAILY PRN 07/07/20 12/18/21 Previous Rx's Medication Instructions Recorded clindamycin phosphate 1 % topical 1 applic topical DAILY #60 grams 03/14/21 gel esomeprazole magnesium 20 mg 20 mg PO DAILY #90 caps 03/14/21 capsule,delayed release eletriptan 40 mg tablet See Rx Instructions .Route 07/21/21 .COMPLEX #10 ea gabapentin 600 mg tablet 600 mg PO TID #90 tabs 12/28/21 Allergies Allergy/AdvReac Type Severity Reaction Status Date / Time lithium AdvReac Intermediate mouth sores Verified 10/01/22 18:50 Review of Systems Constitutional Constitutional: Reports system reviewed and no additional complaints, except as documented Musculoskeletal Musculoskeletal: Reports system reviewed and no additional complaints, except as documented Integumentary/Breasts Skin/Breast: Reports system reviewed and no additional complaints, except as documented Neurologic Neurologic: Reports system reviewed and no additional complaints, except as documented Patient History Medical History Abnormal Pap smear of cervix (1990) ADHD (attention deficit hyperactivity disorder) (2011) Anemia, unspecified Depression (2001) Dermatitis Elbow fracture, right Epidermal cyst Foot fracture, right Foot pain (2005) Hayfever (1990) Herpes (1992) Irregular periods/menstrual cycles Left elbow fracture Left hand fracture Migraines (1981) Onychomycosis Onychomycosis Perioral dermatitis Sacral fracture (11/25/12) Therapeutic drug monitoring Urinary incontinence (2008) Uterine cancer (2015) Vaginal delivery Surgical History Anesthesia History of toe surgery (2010) Status post appendectomy Status post hysterectomy (06/03/17) Status post tubal ligation (2002) Family History Brother Age: 62 DMII (diabetes mellitus, type 2) IBS (irritable bowel syndrome) Essential hypertension High cholesterol Father Diabetes mellitus Heart disease Essential hypertension High cholesterol Cerebrovascular accident (CVA), unspecified mechanism Cardiac aneurysm Mother Diabetes mellitus Essential hypertension Mental health problem Anaphylactic shock Sister Age: 56 Hyperlipidemia Depression Sister Age: 64 Mental health problem Brother No problems noted. Social History household members: spouse Smoking Status: Never smoker alcohol intake: current Smoking Status: Never smoker alcohol intake frequency: holidays/special occasions only Substance Use Type: does not use Exam Initial Vital Signs Initial Vital Signs: Vital Signs Temperature 97.9 F 10/01/22 18:50 Pulse Rate 79 10/01/22 18:50 Respiratory Rate 14 10/01/22 18:50 Blood Pressure 132/67 10/01/22 18:50 Pulse Oximetry 100 10/01/22 18:50 Oxygen Delivery Method 10/01/22 18:50 HENGA Head: normal to inspection Skin Other: Skin abrasion to the ulnar aspect of the right little finger at the level of the PIP joint. Neuro Sensory Exam: no sensory deficits noted Extrem Other: Discomfort along the right little finger and also the metacarpal of the right hand. She is no snuffbox tenderness. No tenderness of the right thumb. Patient also has discomfort over the MTP joint of the right great toe. This is the volar aspect. The rest of her right foot and ankle were unremarkable. Course Orders Ordered: ED Orders 10/01/22 18:52 XR foot RT min 3V Stat XR wrist RT min 3V Stat Vital Signs Vital signs: Vital Signs - 8 hr 10/01/22 18:50 10/01/22 19:44 Temperature 97.9 F Pulse Rate 79 77 Respiratory Rate 14 16 Blood Pressure 132/67 126/73 Pulse Oximetry 100 100 Oxygen Delivery Method Room Air Room Air Medical Decision Making Imaging Data Extremity x-ray #1: Radiologist's Impression: [address] [address] XRay Report Signed Patient: Marylou Franco MR#: [id number] : 1970 Acct:[id number] Age/Sex: 51 / F Date of Service: 10/01/22 Loc: ED Accession Number: [id number] ?? Procedure: XR foot RT min 3V Ordering Provider: Roly Nick D.O. PROCEDURE:? XR FOOT RT MIN 3V ? INDICATIONS:? Fall, foot and wrist pain ? TECHNIQUE:? 3 views of the foot were acquired.? ? COMPARISON:? [facility], CR, XR FOOT 3 VIEWS WEIGHT BEARING LEFT, 07/05/2020, 15:24.? [facility], CR, XR FOOT LT 2V, 03/18/2020, 14:39. ? FINDINGS:? ? Bones:? No fractures or dislocations.? No suspicious bony lesions.? ? Soft tissues:? No tibiotalar joint effusion.? Achilles tendon appears normal.? ? ? IMPRESSION:? No visualized acute fracture or dislocation. However, if clinical concern and/or pain persist, short interval imaging followup in 7-10 days is recommended, as occult injury cannot be definitively excluded. ? ? Dictated by: Alice Knowles M.D. on 10/01/2022 at 19:24 ? ? Approved by: Alice Knowles M.D. on 10/01/2022 at 19:24?? Extremity x-ray #2: Radiologist's Impression: [address] [address] XRay Report Signed Patient: Marylou Franco MR#: [id number] : 1970 Acct:[id number] Age/Sex: 51 / F Date of Service: 10/01/22 Loc: ED Accession Number: [id number] ?? Procedure: XR wrist RT min 3V Ordering Provider: Roly Nick D.O. PROCEDURE:? XR WRIST RT MIN 3V ? INDICATIONS: Fall, foot and wrist pain ? TECHNIQUE:? 3 views of the wrist were acquired.? ? COMPARISON:? None. ? FINDINGS:? ? Bones:? No fractures or dislocations.? No suspicious bony lesions.? ? Soft tissues:? No suspicious soft tissue calcifications.? ? IMPRESSION:? No visualized acute fracture or dislocation. However, if clinical concern and/or pain persist, short interval imaging followup in 7-10 days is recommended, as occult injury cannot be definitively excluded. ? ? Dictated by: Alice Knowles M.D. on 10/01/2022 at 19:24 ? ? Approved by: Alice Knowles M.D. on 10/01/2022 at 19:24?? [facility] Narrative Medical decision making narrative: X-ray shows no signs of acute fractures. She does have a noninfused sesamoid bone and she is somewhat tender over this area although the Radiology read shows no acute pathology. I did discuss this with her. We discussed that if her symptoms do not improve the next couple days that she should be re-evaluated that she may need further evaluation of this. The contusions of her hand need no specific intervention. No indication for immobilization. Will discharge patient home with return precautions. She expressed understanding Discharge Plan Departure Patient Disposition: Home Clinical Impression: Injury of hand, right, Crush injury of right foot Instructions: How To Perform RICE (Rest, Ice, Compress, Elevate) Activity Restrictions/Additional Instructions: I recommend that you continue with conservative measures such as Tylenol/ib uprofen and also ice. If your foot continues to hurt after the next several days you may need re-evaluated like we discussed. Return to the emergency department for any new symptoms. Prescriptions: No Action trazodone 50 MG tablet 50 mg PO HS Qty: 0 Vyvanse 70 MG capsule 70 mg PO DAILY Qty: 0 eletriptan 40 mg tablet See Rx Instructions .ROUTE .COMPLEX Qty: 10 1RF Dose Instruction: TAKE ONE TABLET BY MOUTH AT ONSET OF HEADACHE IF NEEDED Rx Instructions: TAKE ONE TABLET BY MOUTH AT ONSET OF HEADACHE IF NEEDED gabapentin 600 mg tablet 600 mg PO TID Qty: 90 0RF Rx Instructions: NEED TO ESTABLISH WITH NEW PROVIDER FOR FURTHER REFILLS. THANK YOU! lorazepam [Ativan] 0.5 mg tablet 0.5 mg PO DAILY PRN calcium-magnesium 300-300 mg tablet 1 tab PO DAILY esomeprazole magnesium 20 mg capsule,delayed release(DR/EC) 20 mg PO DAILY Qty: 90 0RF clindamycin phosphate 1 % gel 1 applic topical DAILY Qty: 60 0RF lamotrigine [Lamictal] 200 MG tablet 400 mg PO BEDTIME Referrals: Nadir Noonan ARNP [Primary Care Provider] - Stand Alone Forms: Patient Portal/API
[2022-10-01 19:44] VITALS: BP 126/73; PULSE 77; RESP 16; O2SAT 100
== END 2022-10-01 19:45 | disposition home or self-care (01) ==
PROVIDERS: Emergency Provider Emergency Medicine; PCP Nurse Practitioner Family
DX: S69.91XA Unspecified injury of right wrist, hand and finger(s), initial encounter (principal); S97.81XA Crushing injury of right foot, initial encounter; W01.0XXA Fall on same level from slipping, tripping and stumbling without subsequent striking against object, initial encounter
CPT/HCPCS: 73110; 73630; 99283

== ENCOUNTER → 2022-12-19 09:21 | Outpatient (CLI) | payer OTHER, SELFPAY ==
[2022-12-19 11:40] LABS: Hematocrit 40.5 % (36-46); Hemoglobin 13.7 g/dL (12.0-16.0); Mean Corpuscular HGB Conc 33.9 % (30-36); Mean Corpuscular Hemoglobin 30.3 PG (26-34); Mean Corpuscular Volume 89.3 fL (80-100); Platelet Count 238 X10^3/uL (150-400); Red Blood Cell Count 4.53 X10^6/uL (4.0-5.2); Red Cell Distribution Width 12.8 % (11.6-14.8); White Blood Cell Count 4.4 X10^3/uL (4.5-11.0)
[2022-12-19 12:12] LABS: Alanine Aminotransferase 18 IU/L (<35); Albumin Globulin Ratio 1.3 (1.0-2.8); Alkaline Phosphatase 94 U/L (38-126); Aspartate Aminotransferase 22 IU/L (14-36); BUN Creatinine Ratio 14.3 (6-22); Bilirubin Total 0.4 mg/dL (0.2-1.3); Blood Urea Nitrogen 10 mg/dL (7-17); Calcium 8.8 mg/dL (8.4-10.2); Carbon Dioxide 28 mmol/L (22-32); Chloride 105 mmol/L (98-107); Cholesterol 196 mg/dL (140-199); Estimated Glomerular Filt Rate > 60 mL/min (>60); Glucose 89 mg/dL (70-100); HDL Cholesterol 51 mg/dL (40-60); HEMOLYSIS < 15 (0-50); LDL Cholesterol Calculated 121 mg/dL (<100); Potassium 4.6 mmol/L (3.4-5.1); Sodium 141 mmol/L (137-145); Triglycerides 122 mg/dL (35-150)
[2022-12-19 12:39] LABS: TSH w/ Reflex to FT4 0.98 uIU/mL (0.47-4.68)
== END ==
PROVIDERS: PCP Registered Nurse Diabetes Educator; Referring Provider Registered Nurse Diabetes Educator; Visit Provider Registered Nurse Diabetes Educator
DX: Z00.00 Encounter for general adult medical examination without abnormal findings (principal)
CPT/HCPCS: 36415; 80053; 80061; 84443; 85027

== ENCOUNTER → 2023-12-18 11:45 | Outpatient (CLI) | payer OTHER, SELFPAY ==
--- NOTE | 2023-12-18 11:46 | DI.MG.S_ITS ---
BILATERAL DIGITAL SCREENING MAMMOGRAM 3D/2D WITH CAD: 12/18/2023 CLINICAL: Routine screening. Comparison is made to exams dated: 11/14/2018 mammogram, 04/15/2015 mammogram, and 01/19/2013 mammogram - [facility]. There are scattered areas of fibroglandular density in both breasts (category b / 25%-50% glandular tissue). Current study was also evaluated with a Computer Aided Detection (CAD) system. No significant masses, calcifications, or other findings are seen in either breast. There has been no significant interval change. IMPRESSION: NEGATIVE There is no mammographic evidence of malignancy. A 1 year screening mammogram is recommended. Based on the Tyrer Cuzick model (a risk assessment model) the patient's lifetime risk is 6.7% and her 10 year risk is 1.9%. According to the ACR, ACS, and NCCN guidelines, an annual breast MRI exam along with mammogram is recommended if the patient's lifetime risk is 20% or greater. This exam was interpreted at Station ID: [id number]. NOTE: For mammograms, a report in lay terms will be sent to the patient. Approximately 15% of breast malignancies will not be visualized mammographically. In the management of a palpable breast mass, a negative mammogram must not discourage biopsy of a clinically suspicious lesion. Electronically Signed By: Cheri kuo/breanna:12/18/2023 13:15:02 letter sent: Normal Exam ACR BI-RADS Category 1: Negative [id number]
== END ==
PROVIDERS: PCP Registered Nurse Diabetes Educator; Referring Provider Registered Nurse Diabetes Educator; Visit Provider Registered Nurse Diabetes Educator
DX: Z12.31 Encounter for screening mammogram for malignant neoplasm of breast (principal); R92.323 Mammographic fibroglandular density, bilateral breasts
CPT/HCPCS: 77063; 77067

== ENCOUNTER 2024-03-26 08:23 | Day surgery (SDC) | payer OTHER, SELFPAY ==
[2024-03-26] MEDS: LACTATED RINGERS 1,000 ML 42 ML IV (08:45)
--- NOTE | 2024-03-26 08:51 | P.HP_ITS ---
History of Present Illness History of Present Illness Date Patient Seen: 03/26/24 Time Patient Seen: 08:51 Chief complaint: SDC Narrative: Marylou is a 53-year-old woman here for colonoscopy. She has never had 1 before. No known family history of colon cancer. [facility] Medical History Dyslipidemia History of uterine cancer Migraine with aura, not intractable, without status migrainosus Onychomycosis Perioral dermatitis Dermatitis Anemia, unspecified Onychomycosis Therapeutic drug monitoring Epidermal cyst Uterine cancer (2015) Left elbow fracture Elbow fracture, right Foot fracture, right Left hand fracture Urinary incontinence (2008) Abnormal Pap smear of cervix (1990) Herpes (1992) Irregular periods/menstrual cycles Foot pain (2005) Migraines (1981) ADHD (attention deficit hyperactivity disorder) (2011) Depression (2001) Hayfever (1990) Sacral fracture (11/25/12) Vaginal delivery Bipolar affective disorder (04/12/16) Surgical History Anesthesia History of toe surgery (2010) Status post hysterectomy (06/03/17) Status post appendectomy Status post tubal ligation (2002) Family History Brother Age: 64 DMII (diabetes mellitus, type 2) IBS (irritable bowel syndrome) Essential hypertension High cholesterol Father Diabetes mellitus Heart disease Essential hypertension High cholesterol Cerebrovascular accident (CVA), unspecified mechanism Cardiac aneurysm Mother Diabetes mellitus Essential hypertension Mental health problem Anaphylactic shock Sister Age: 58 Hyperlipidemia Depression Sister Age: 66 Mental health problem Brother No problems noted. Social History household members: spouse Smoking Status: Never smoker alcohol intake: current Meds Home Medications and Allergies Home Medications Medication Instructions Recorded Confirmed Type lisdexamfetamine 70 mg capsule 70 mg PO DAILY ##0 05/27/17 03/26/24 History (Vyvanse) trazodone 50 mg tablet 50 mg PO HS ##0 05/27/17 03/26/24 History lamotrigine 200 mg tablet 400 mg PO BEDTIME 05/14/19 03/26/24 History (Lamictal) lorazepam 0.5 mg tablet (Ativan) 0.5 mg PO DAILY PRN Anxiety 07/07/20 03/26/24 History bupropion HCl 300 mg 24 hr tablet, 300 mg PO QAM 12/11/22 03/26/24 History extended release (Wellbutrin XL) eletriptan 40 mg tablet See Rx Instructions PO .COMPLEX 12/11/22 03/26/24 Rx #10 tabs venlafaxine 75 mg capsule,extended 75 mg PO BID 01/02/23 03/26/24 History release 24 hr valacyclovir 500 mg tablet 500 mg PO BID #30 tabs 05/28/23 03/26/24 Rx (Valtrex) Allergies Allergy/AdvReac Type Severity Reaction Status Date / Time lithium AdvReac Intermediate mouth sores Verified 03/26/24 08:39 Exam Const General: No acute distress Resp Effort & Inspection: normal respiratory effort Assessment & Plan Assessment and plan (1) Screening for colon cancer: Status: Acute Plan We reviewed the risks and benefits of colonoscopy for colon cancer screening and she would like to proceed. Time-Based Coding :: [TOTAL MINUTES] spent with patient and on the chart (including review of chart, obtaining history, exam, reviewing outside data, placing orders, documenting exam and treatment plan, and counseling patient) on [DATE].
[2024-03-26 08:57] VITALS: BP 128/79; PULSE 77; RESP 18; TEMP 35.9; O2SAT 98
--- NOTE | 2024-03-26 09:32 | PM.OP.COLON ---
Operative Date/Time/Diagnoses Date of procedure: 03/26/24 Time of procedure: 09:33 Pre-op diagnosis: Colon cancer screening Post-op diagnosis: same Procedure & Clinicians Study performed: Colonoscopy (aborted) Same procedure as scheduled: Yes Surgeon: Dick Street Procedure Notes Procedure in detail: Surgeon: Dick Street MD Anesthesia: Leeann Michaels MD Procedure: The patient was brought to the endoscopy suite, placed in left lateral decubitus position. The patient was connected to monitoring devices. A time-out was performed. Sedation was administered. Once the patient was adequately sedated, a digital rectal exam was performed and was normal. The scope was then inserted and advanced to the ascending colon. The prep was inadequate to safely complete the procedure. The procedure was terminated. The patient was awakened and brought to recovery. Scope withdrawal time: Not applicable Sedation time: 3 minutes EBL: None Findings: Incomplete prep Post-procedure Disposition: PACU
[2024-03-26 09:38] VITALS: BP 105/69; PULSE 72; RESP 16; TEMP 36.8; O2SAT 95
[2024-03-26 09:43] VITALS: BP 106/68; PULSE 81; RESP 13; O2SAT 96
[2024-03-26 09:47] VITALS: BP 107/69; PULSE 78; RESP 14; O2SAT 97
[2024-03-26 09:48] VITALS: BP 105/77; PULSE 76; RESP 14; TEMP 36.8; O2SAT 98
== END 2024-03-26 09:56 | disposition home or self-care (01) ==
PROVIDERS: PCP Registered Nurse Diabetes Educator; Referring Provider Surgery; Visit Provider Surgery
PROC: 0DJD8ZZ Inspection of Lower Intestinal Tract, Via Natural or Artificial Opening Endoscopic (ICD-10-PCS; CPT 45378; principal; 2024-03-26 09:15)
DX: Z12.11 Encounter for screening for malignant neoplasm of colon (principal); Z53.09 Procedure and treatment not carried out because of other contraindication
CPT/HCPCS: 45378; J2704

== ENCOUNTER 2024-04-16 11:50 | Day surgery (SDC) | payer OTHER, SELFPAY ==
[2024-04-16] MEDS: LACTATED RINGERS 1,000 ML 42 ML IV (12:01)
[2024-04-16 12:06] VITALS: BP 125/77; PULSE 79; RESP 16; TEMP 36.4; O2SAT 99
--- NOTE | 2024-04-16 12:50 | PM.HP.1 ---
History of Present Illness History of Present Illness Date Patient Seen: 04/16/24 Time Patient Seen: 12:50 Chief complaint: [facility] [place] Narrative: Marylou is a 53-year-old woman here for her first colonoscopy. She attempted a colonoscopy earlier this month but the prep was inadequate. This time she was repeated the prep with 2 days of clear liquids with good results. [facility] Medical History Dyslipidemia History of uterine cancer Migraine with aura, not intractable, without status migrainosus Onychomycosis Perioral dermatitis Dermatitis Anemia, unspecified Onychomycosis Therapeutic drug monitoring Epidermal cyst Uterine cancer (2015) Left elbow fracture Elbow fracture, right Foot fracture, right Left hand fracture Urinary incontinence (2008) Abnormal Pap smear of cervix (1990) Herpes (1992) Irregular periods/menstrual cycles Foot pain (2005) Migraines (1981) ADHD (attention deficit hyperactivity disorder) (2011) Depression (2001) Hayfever (1990) Sacral fracture (11/25/12) Vaginal delivery Bipolar affective disorder (04/12/16) Surgical History Anesthesia History of toe surgery (2010) Status post hysterectomy (06/03/17) Status post appendectomy Status post tubal ligation (2002) Family History Brother Age: 64 DMII (diabetes mellitus, type 2) IBS (irritable bowel syndrome) Essential hypertension High cholesterol Father Diabetes mellitus Heart disease Essential hypertension High cholesterol Cerebrovascular accident (CVA), unspecified mechanism Cardiac aneurysm Mother Diabetes mellitus Essential hypertension Mental health problem Anaphylactic shock Sister Age: 58 Hyperlipidemia Depression Sister Age: 66 Mental health problem Brother No problems noted. Social History household members: spouse Smoking Status: Never smoker alcohol intake: current Meds Home Medications and Allergies Home Medications Medication Instructions Recorded Confirmed Type lisdexamfetamine 70 mg capsule 70 mg PO DAILY ##0 05/27/17 04/16/24 History (Vyvanse) trazodone 50 mg tablet 50 mg PO HS ##0 05/27/17 04/16/24 History lamotrigine 200 mg tablet 400 mg PO BEDTIME 05/14/19 04/16/24 History (Lamictal) lorazepam 0.5 mg tablet (Ativan) 0.5 mg PO DAILY PRN Anxiety 07/07/20 04/16/24 History bupropion HCl 300 mg 24 hr tablet, 300 mg PO QAM 12/11/22 04/16/24 History extended release (Wellbutrin XL) eletriptan 40 mg tablet See Rx Instructions PO .COMPLEX 12/11/22 04/16/24 Rx #10 tabs venlafaxine 75 mg capsule,extended 75 mg PO BID 01/02/23 04/16/24 History release 24 hr valacyclovir 500 mg tablet 500 mg PO BID #30 tabs 05/28/23 04/16/24 Rx (Valtrex) Allergies Allergy/AdvReac Type Severity Reaction Status Date / Time lithium AdvReac Intermediate mouth sores Verified 04/16/24 12:02 Exam Vital Signs (past 8 hours): - 04/16/24 12:06 Temperature 97.6 F Pulse Rate 79 Respiratory Rate 16 Blood Pressure 125/77 Pulse Oximetry 99 Oxygen Delivery Method Room Air Oxygen Delivery Method Room Air Const General: healthy appearing Resp Effort & Inspection: normal respiratory effort Assessment & Plan Assessment and plan (1) Screening for colon cancer: Status: Acute Plan We reviewed the risks and benefits of colonoscopy for colon cancer screening and she would like to proceed. Time-Based Coding :: [TOTAL MINUTES] spent with patient and on the chart (including review of chart, obtaining history, exam, reviewing outside data, placing orders, documenting exam and treatment plan, and counseling patient) on [DATE].
--- NOTE | 2024-04-16 13:16 | PM.OP.COLON ---
Operative Date/Time/Diagnoses Date of procedure: 04/16/24 Time of procedure: 13:16 Pre-op diagnosis: Colon cancer screening Post-op diagnosis: same Procedure & Clinicians Study performed: Colonoscopy Same procedure as scheduled: Yes Surgeon: Dick Street Procedure Notes Procedure in detail: Surgeon: Dick Street MD Anesthesia: Courtney Mirza CRNA Procedure: The patient was brought to the endoscopy suite, placed in left lateral decubitus position. The patient was connected to monitoring devices. A time-out was performed. Sedation was administered. Once the patient was adequately sedated, a digital rectal exam was performed and was normal. The scope was then inserted and advanced to the cecum where the appendiceal orifice was identified and photographed. The scope was then slowly withdrawn over greater than 6 minutes. The mucosa was thoroughly inspected. No polyps or other abnormalities were found. The scope was retroflexed in the rectum. The scope was straightened and removed. The patient was awakened and brought to recovery. Scope withdrawal time: 7 minutes Sedation time: 13 minutes EBL: 0 Findings: Normal colon Post-procedure Recommendations: Colonoscopy in 10 years Disposition: PACU
[2024-04-16 13:18] VITALS: BP 128/76; PULSE 79; RESP 16; TEMP 36.3; O2SAT 96
[2024-04-16 13:23] VITALS: BP 122/74; PULSE 83; RESP 19; O2SAT 96
[2024-04-16 13:27] VITALS: BP 117/81; PULSE 83; RESP 13; O2SAT 98
[2024-04-16 13:30] VITALS: BP 115/75; PULSE 78; RESP 15; O2SAT 99
[2024-04-16 13:36] VITALS: BP 111/77; PULSE 81; RESP 13; O2SAT 98
== END 2024-04-16 13:38 | disposition home or self-care (01) ==
PROVIDERS: PCP Registered Nurse Diabetes Educator; Referring Provider Surgery; Visit Provider Surgery
PROC: 0DJD8ZZ Inspection of Lower Intestinal Tract, Via Natural or Artificial Opening Endoscopic (ICD-10-PCS; CPT 45378; principal; 2024-04-16 13:00)
DX: Z12.11 Encounter for screening for malignant neoplasm of colon (principal)
CPT/HCPCS: 45378; J2704

== ENCOUNTER → 2024-08-26 13:59 | Outpatient (CLI) | payer OTHER, SELFPAY | PROVIDERS: PCP Registered Nurse Diabetes Educator; Visit Provider Student in an Organized Health Care Education/Training Program | DX: J02.9 Acute pharyngitis, unspecified (principal) | CPT/HCPCS: 87070 ==

== ENCOUNTER → 2024-08-26 14:26 | Outpatient (CLI) | payer OTHER, SELFPAY ==
--- NOTE | 2024-08-26 14:27 | DI.RAD.S_ITS ---
PROCEDURE: XR CHEST 2V INDICATIONS: cough 14 D, fatigue TECHNIQUE: 2 views of the chest were acquired. COMPARISON: None. FINDINGS: Surgical changes and devices: None. Lungs and pleura: Lungs are clear. No pleural effusions or pneumothorax. Mediastinum: Mediastinal contours are normal. Heart size is normal. Bones and chest wall: No suspicious bony abnormalities. Soft tissues appear unremarkable. IMPRESSION: No acute cardiopulmonary abnormality is seen. Dictated by: Suraj Maddox M.D. on 08/26/2024 at 15:11 Approved by: Suraj Maddox M.D. on 08/26/2024 at 15:12
== END ==
LOC: RAD 14:26
PROVIDERS: PCP Registered Nurse Diabetes Educator; Referring Provider Student in an Organized Health Care Education/Training Program; Visit Provider Student in an Organized Health Care Education/Training Program
DX: J02.9 Acute pharyngitis, unspecified (principal); R05.9 Cough, unspecified
CPT/HCPCS: 71046; 87070

== ENCOUNTER 2024-10-05 22:57 | Emergency (ER) | payer OTHER, SELFPAY ==
[2024-10-05 22:58] VITALS: BP 149/72; PULSE 80; RESP 20; TEMP 36.9; O2SAT 98; BMI 32.8
--- NOTE | 2024-10-05 23:22 | PC.NURSE ---
ELECTRONIC PLOTTING SYSTEM OPERATOR note: Patient changed out of street clothes into green paper scrubs. Patient's belongings put into bags, leaving shoes in separate bag because there maybe dog poop on them. Patient's belonging bags are in the cabinet with her patient stickers. ELECTRONIC PLOTTING SYSTEM OPERATOR sitting near bedside. Patient is crying and sniffling.
--- NOTE | 2024-10-06 01:39 | ED_ITS ---
HPI - Psych <Jonathan Barros MD - Last Filed: 10/06/24 16:35> General Chief Complaint: Psychiatric Symptoms Stated Complaint: MANUEL Time Seen by Provider: 10/05/24 23:25 Source: patient and police Mode of arrival: Ambulatory History of Present Illness HPI Narrative: 53-year-old female with history of ADHD, depression, got into argument with her 10-year-old grandson for whom she is legal guardian adoptive parent, living in the same household, during the argument she had expressed thoughts of hurting herself. No injury. Here for further evaluation. Related Data Home Medications Medication Instructions Recorded Confirmed lisdexamfetamine 70 mg capsule 70 mg PO DAILY ##0 05/27/17 09/20/24 (Vyvanse) trazodone 50 mg tablet 50 mg PO HS ##0 05/27/17 09/20/24 lamotrigine 200 mg tablet 400 mg PO BEDTIME 05/14/19 09/20/24 (Lamictal) lorazepam 0.5 mg tablet (Ativan) 0.5 mg PO DAILY PRN Anxiety 07/07/20 09/20/24 bupropion HCl 300 mg 24 hr tablet, 300 mg PO QAM 12/11/22 09/20/24 extended release (Wellbutrin XL) venlafaxine 75 mg capsule,extended 75 mg PO BID 01/02/23 09/20/24 release 24 hr Previous Rx's Medication Instructions Recorded eletriptan 40 mg tablet See Rx Instructions PO .COMPLEX 12/11/22 #10 tabs valacyclovir 500 mg tablet 500 mg PO BID #30 tabs 05/28/23 (Valtrex) benzonatate 100 mg capsule 100 mg PO TID PRN cough 7 days #21 08/26/24 caps Allergies Allergy/AdvReac Type Severity Reaction Status Date / Time lithium AdvReac Intermediate mouth sores Verified 09/20/24 16:30 Patient History <Jonathan Barros MD - Last Filed: 10/06/24 16:35> Medical History Dyslipidemia History of uterine cancer Migraine with aura, not intractable, without status migrainosus Onychomycosis Perioral dermatitis Dermatitis Anemia, unspecified Onychomycosis Therapeutic drug monitoring Epidermal cyst Uterine cancer (2016) Left elbow fracture Elbow fracture, right Foot fracture, right Left hand fracture Urinary incontinence (2008) Abnormal Pap smear of cervix (1990) Herpes (1992) Irregular periods/menstrual cycles Foot pain (2005) Migraines (1981) ADHD (attention deficit hyperactivity disorder) (2011) Depression (2001) Hayfever (1990) Sacral fracture (11/25/12) Vaginal delivery Bipolar affective disorder (04/12/16) Surgical History Anesthesia History of toe surgery (2010) Status post hysterectomy (06/03/17) Status post appendectomy Status post tubal ligation (2002) Family History Brother Age: 64 DMII (diabetes mellitus, type 2) IBS (irritable bowel syndrome) Essential hypertension High cholesterol Father Diabetes mellitus Heart disease Essential hypertension High cholesterol Cerebrovascular accident (CVA), unspecified mechanism Cardiac aneurysm Mother Diabetes mellitus Essential hypertension Mental health problem Anaphylactic shock Sister Age: 58 Hyperlipidemia Depression Sister Age: 66 Mental health problem Brother No problems noted. Social History household members: spouse Smoking Status: Never smoker alcohol intake: current Smoking Status: Never smoker alcohol intake frequency: holidays/special occasions only Exam <Jonathan Barros MD - Last Filed: 10/06/24 16:35> Narrative Exam Narrative: GENERAL: Well-developed patient, in mild distress. HEAD: Atraumatic. Normocephalic. EYES: Pupils equal round and reactive. Extraocular motions intact. No scleral icterus. No injection or drainage. ENT: Nose without bleeding, purulent drainage. Throat without erythema, tonsillar hypertrophy or exudate. Airway patent. NECK: Trachea midline. Non tender CARDIOVASCULAR: Regular rate and rhythm without murmurs, gallops, or rubs. RESPIRATORY: Clear to auscultation. Breath sounds equal bilaterally. No wheezes, rales, or rhonchi. GASTROINTESTINAL: Abdomen soft, non-tender, nondistended. EXTREMITIES: No edema or joint tenderness. BACK: Nontender without deformity or crepitance. No flank tenderness. NEURO: AOx3. Motor functions grossly nonfocal SKIN: No rash or erythema of visible areas Initial Vital Signs Initial Vital Signs: Vital Signs Temperature 98.5 F 10/05/24 22:58 Pulse Rate 80 10/05/24 22:58 Respiratory Rate 20 10/05/24 22:58 Blood Pressure 149/72 H 10/05/24 22:58 Pulse Oximetry 98 10/05/24 22:58 Oxygen Delivery Method Room Air 10/05/24 22:58 <Preeti Verdugo DO - Last Filed: 10/06/24 16:20> Initial Vital Signs Initial Vital Signs: Vital Signs Temperature 98.5 F 10/05/24 22:58 Pulse Rate 80 10/05/24 22:58 Respiratory Rate 20 10/05/24 22:58 Blood Pressure 149/72 H 10/05/24 22:58 Pulse Oximetry 98 10/05/24 22:58 Oxygen Delivery Method Room Air 10/05/24 22:58 Course <Jonathan Barros MD - Last Filed: 10/06/24 16:35> Orders Ordered: ED Orders 10/05/24 23:06 Consult to [facility] - Immigration Manager Stat 10/06/24 00:15 Urine Drug Screen, Rapid Stat 10/06/24 01:42 Consult to [facility] - Immigration Manager Stat EKG-12 Lead Stat 10/06/24 01:55 Complete Blood Count AUTO DIFF Stat Comprehensive Metabolic Panel Stat Ethanol (ETOH) Stat TSH w/ Reflex to FT4 Stat 10/06/24 02:09 COVID19 -Nasal RAPID Stat Vital Signs Vital signs: Vital Signs - 8 hr 10/06/24 08:41 10/06/24 12:00 10/06/24 14:09 Temperature 98.2 F 97.8 F Pulse Rate 82 80 80 Respiratory Rate 17 18 18 Blood Pressure 125/76 Blood Pressure [Left Arm] 101/54 L 132/64 Pulse Oximetry 95 99 98 Oxygen Delivery Method Room Air Room Air Room Air <Preeti Verdugo DO - Last Filed: 10/06/24 16:20> Orders Ordered: ED Orders 10/05/24 23:06 Consult to [employer] - Immigration Manager Stat 10/06/24 00:15 Urine Drug Screen, Rapid Stat 10/06/24 01:42 Consult to [facility] Immigration Manager Stat EKG-12 Lead Stat 10/06/24 01:55 Complete Blood Count AUTO DIFF Stat Comprehensive Metabolic Panel Stat Ethanol (ETOH) Stat TSH w/ Reflex to FT4 Stat 10/06/24 02:09 COVID19 -Nasal RAPID Stat Vital Signs Vital signs: Vital Signs - 8 hr 10/06/24 08:41 10/06/24 12:00 10/06/24 14:09 Temperature 98.2 F 97.8 F Pulse Rate 82 80 80 Respiratory Rate 17 18 18 Blood Pressure 125/76 Blood Pressure [Left Arm] 101/54 L 132/64 Pulse Oximetry 95 99 98 Oxygen Delivery Method Room Air Room Air Room Air MDM - Psych <Jonathan Barros MD - Last Filed: 10/06/24 16:35> Lab Data Attestation: I reviewed the patient's lab results. 10/06/24 01:55 10/06/24 01:55 Labs: Lab Results 10/06/24 10/06/24 10/06/24 Range/Units 00:15 01:55 02:09 WBC 7.8 (4.5-11.0) X10^3/uL RBC 4.36 (4.0-5.2) X10^6/uL Hgb 13.3 (12.0-16.0) g/dL Hct 38.9 (36-46) % MCV 89.2 (80-100) fL MCH 30.4 (26-34) PG MCHC 34.1 (30-36) % RDW 12.9 (11.6-14.8) % Plt Count 252 (150-400) X10^3/uL Neut % (Auto) 60.3 (50-75) % Lymph % (Auto) 30.8 (25-40) % [place] % (Auto) 6.1 (3-14) % Eos % (Auto) 1.9 L (2-4) % Baso % (Auto) 0.9 (0-2) % Neut # (Auto) 4700 (8757-0771) /uL Lymph # (Auto) 2400 (8922-3901) /uL [place] # (Auto) 500 (0-900) /uL Eos # (Auto) 100 (0-450) /uL Baso # (Auto) 100 (0-100) /uL Sodium 138 (137-145) mmol/L Potassium 3.9 (3.4-5.1) mmol/L Chloride 108 H (98-107) mmol/L Carbon Dioxide 24 (22-32) mmol/L BUN 9 (7-17) mg/dL Creatinine 0.71 (0.52-1.04) mg/dL Estimated GFR > 60 (>60) mL/min BUN/Creatinine Ratio 12.7 (6-22) Glucose 101 H (70-100) mg/dL Calcium 9.2 (8.4-10.2) mg/dL Total Bilirubin 0.4 (0.2-1.3) mg/dL AST 28 (14-36) IU/L ALT 23 (<35) IU/L Alkaline Phosphatase 93 (38-126) U/L Total Protein 6.9 (6.3-8.2) g/dL Albumin 3.9 (3.5-5.0) g/dL Globulin 3.0 (1.7-4.1) g/dL Albumin/Globulin Ratio 1.3 (1.0-2.8) TSH 1.20 (0.47-4.68) uIU/mL U Opiates 300ng/mL cut Negative (Negative) Ur Oxycodone Screen Negative (Negative) Urine Methadone Screen Negative (Negative) Ur Barbiturates Screen Negative (Negative) U Tricyclic Antidepress Negative (Negative) Ur Phencyclidine Scrn Negative (Negative) Ur Amphetamines Screen Positive H (Negative) U Methamphetamines Scrn Negative (Negative) Ur MDMA Scrn (Ecstasy) Negative (Negative) U Benzodiazepines Scrn Negative (Negative) Urine Cocaine Screen Negative (Negative) U Marijuana (THC) Screen Negative (Negative) Urine pH Normal (Normal) Urine Specific Robbins Normal (Normal) Ethyl Alcohol < 10 ( - 10) mg/dL Ur Creatinine Normal (Normal) SARS-CoV-2 (PCR) Negative (Negative) Urine Dip Bedside Urine Glucose Negative Bedside Urine Bilirubin - Negative Bedside Urine Ketone - Negative Urine Specific Robbins 1.020 Bedside Urine Occult Blood - Negative Bedside Urine pH 6.0 Bedside Urine Protein - Negative Bedside Urine Urobilinogen - Negative Bedside Urine Nitrite - Negative Bedside Urine Leukocytes - Negative Esterase ECG Data Attestation: I personally reviewed and interpreted this ECG as follows: Interpretation: Normal sinus rhythm with rate of 72, no obvious ST segment elevation or depression changes. T-wave flattening in lead 3. MT 162, QRS 94, QTC 459. MDM Narrative Medical decision making narrative: 53-year-old female with suicidal ideation in context of argument with 10-year-old grandson for whom she has legal guardian adoptive parent/mother, here for further evaluation. History of depression, history of ADHD. Screening labs sent. academic services coordinator evaluation when available later this morning. Screening labs unremarkable. COVID negative. UDS positive for amphetamine, reflective of her ADHD medication. 10/06/24, 0700, awaiting social science research assistant consultation. Signed out to Dr. Verdugo. <Preeti Verdugo, DO - Last Filed: 10/06/24 16:20> Lab Data Labs: Lab Results 10/06/24 10/06/24 10/06/24 Range/Units 00:15 01:55 02:09 WBC 7.8 (4.5-11.0) X10^3/uL RBC 4.36 (4.0-5.2) X10^6/uL Hgb 13.3 (12.0-16.0) g/dL Hct 38.9 (36-46) % MCV 89.2 (80-100) fL MCH 30.4 (26-34) PG MCHC 34.1 (30-36) % RDW 12.9 (11.6-14.8) % Plt Count 252 (150-400) X10^3/uL Neut % (Auto) 60.3 (50-75) % Lymph % (Auto) 30.8 (25-40) % [place] % (Auto) 6.1 (3-14) % Eos % (Auto) 1.9 L (2-4) % Baso % (Auto) 0.9 (0-2) % Neut # (Auto) 4700 (9057-9373) /uL Lymph # (Auto) 2400 (2768-3878) /uL [place] # (Auto) 500 (0-900) /uL Eos # (Auto) 100 (0-450) /uL Baso # (Auto) 100 (0-100) /uL Sodium 138 (137-145) mmol/L Potassium 3.9 (3.4-5.1) mmol/L Chloride 108 H (98-107) mmol/L Carbon Dioxide 24 (22-32) mmol/L BUN 9 (7-17) mg/dL Creatinine 0.71 (0.52-1.04) mg/dL Estimated GFR > 60 (>60) mL/min BUN/Creatinine Ratio 12.7 (6-22) Glucose 101 H (70-100) mg/dL Calcium 9.2 (8.4-10.2) mg/dL Total Bilirubin 0.4 (0.2-1.3) mg/dL AST 28 (14-36) IU/L ALT 23 (<35) IU/L Alkaline Phosphatase 93 (38-126) U/L Total Protein 6.9 (6.3-8.2) g/dL Albumin 3.9 (3.5-5.0) g/dL Globulin 3.0 (1.7-4.1) g/dL Albumin/Globulin Ratio 1.3 (1.0-2.8) TSH 1.20 (0.47-4.68) uIU/mL U Opiates 300ng/mL cut Negative (Negative) Ur Oxycodone Screen Negative (Negative) Urine Methadone Screen Negative (Negative) Ur Barbiturates Screen Negative (Negative) U Tricyclic Antidepress Negative (Negative) Ur Phencyclidine Scrn Negative (Negative) Ur Amphetamines Screen Positive H (Negative) U Methamphetamines Scrn Negative (Negative) Ur MDMA Scrn (Ecstasy) Negative (Negative) U Benzodiazepines Scrn Negative (Negative) Urine Cocaine Screen Negative (Negative) U Marijuana (THC) Screen Negative (Negative) Urine pH Normal (Normal) Urine Specific Robbins Normal (Normal) Ethyl Alcohol < 10 ( - 10) mg/dL Ur Creatinine Normal (Normal) SARS-CoV-2 (PCR) Negative (Negative) Urine Dip Bedside Urine Glucose Negative Bedside Urine Bilirubin - Negative Bedside Urine Ketone - Negative Urine Specific Robbins 1.020 Bedside Urine Occult Blood - Negative Bedside Urine pH 6.0 Bedside Urine Protein - Negative Bedside Urine Urobilinogen - Negative Bedside Urine Nitrite - Negative Bedside Urine Leukocytes - Negative Esterase MDM Narrative Medical decision making narrative: 53-year-old female with suicidal ideation in context of argument with 10-year-old grandson for whom she has legal guardian adoptive parent/mother, here for further evaluation. History of depression, history of ADHD. Screening labs sent. academic services coordinator evaluation when available later this morning. Screening labs unremarkable. COVID negative. UDS positive for amphetamine, reflective of her ADHD medication. 10/06/24, 0700, awaiting social science research assistant consultation. Signed out to Dr. Verdugo. Dr. Verdugo-patient signed out to me by Dr. Barros seen evaluated patient myself. Evaluated by social work able to have safety plan and network of support to be discharged home. Child has been taking care of. Patient agrees with plan and contracts for safety. Discharge Plan Departure Patient Disposition: Home Clinical Impression: Suicidal ideation Instructions: DI for Suicidal Ideation-Adult Activity Restrictions/Additional Instructions: *You have been diagnosed with suicidal ideation *What to do: If you are feeling suicidal or having suicidal thoughts: Call: Suicide Hotline: 844 Visit: www.[employer] Text: 427411 *Continue to take medications as directed *Follow up with your primary care provider in 2-3 days or call [phone] *Return to ER if you should have any new, worsening or concerning symptoms Prescriptions: No Action benzonatate 100 mg capsule 100 mg PO TID PRN (Reason: cough) 7 Days Qty: 21 1RF trazodone 50 MG tablet 50 mg PO HS Qty: 0 lisdexamfetamine [Vyvanse] 70 MG capsule 70 mg PO DAILY Qty: 0 lorazepam [Ativan] 0.5 mg tablet 0.5 mg PO DAILY PRN (Reason: Anxiety) bupropion HCl [Wellbutrin XL] 300 mg tablet extended release 24 hr 300 mg PO QAM eletriptan 40 mg tablet See Rx Instructions PO .COMPLEX Qty: 10 2RF Rx Instructions: take 1 tab at onset of headache; if no relief, may repeat 1 tab after at least 2 hrs; max = 2 tabs/24 hrs PO venlafaxine 75 mg capsule,extended release 24hr 75 mg PO BID valacyclovir [Valtrex] 500 mg tablet 500 mg PO BID Qty: 30 3RF Rx Instructions: At onset of outbreak take 1 tab twice daily for 3 days (bottle contains enough pills for MORE than 1 outbreak) lamotrigine [Lamictal] 200 MG tablet 400 mg PO BEDTIME Referrals: Tc Pino ARNP [Primary Care Provider] - Stand Alone Forms: Patient Portal/API/Survey
--- NOTE | 2024-10-06 01:56 | EKG_ITS ---
[place] [id number] [place] [id number] Test Date: 2024-10-06 Pat Name: Marylou Franco Department: [facility] Room: Gender: Female Cloud Administrator: AGUILAR ADAMS : 1970 Requested By: Order Number: [id number] Reading MD: Julio C Sandoval MD Measurements Intervals [place] Rate: 72 P: 53 MS: 162 QRS: 16 QRSD: 94 T: 35 QT: 416 QTc: 455 Interpretive Statements Normal sinus rhythm Low voltage QRS Electronically Signed On 10-06-2024 6:48:09 PST by Julio C Sandoval MD
--- NOTE | 2024-10-06 01:57 | EKG_ITS ---
[address] [address] Test Date: 2024-10-06 Pat Name: Marylou Franco Department: [facility] Room: Gender: Female Engrosser: AGUILAR ADAMS : 1970 Requested By: Order Number: [id number] Reading MD: Jc Bennett Measurements Intervals [place] Rate: 72 P: 26 [place]: 162 QRS: 3 QRSD: 94 T: 20 QT: 420 QTc: 459 Interpretive Statements Normal sinus rhythm Low voltage QRS Electronically Signed On 10-06-2024 13:28:38 PST by Jc Bennett
[2024-10-06 02:05] LABS: Add Manual Diff / Slide Review NO; Basophils Absolute Auto 100 /uL (0-100); Basophils Percent Auto 0.9 % (0-2); Eosinophils Absolute Auto 100 /uL (0-450); Eosinophils Percent Auto 1.9 % (2-4); Hematocrit 38.9 % (36-46); Hemoglobin 13.3 g/dL (12.0-16.0); Lymphocytes Absolute Auto 2400 /uL (1100-4500); Lymphocytes Percent Auto 30.8 % (25-40); Mean Corpuscular HGB Conc 34.1 % (30-36); Mean Corpuscular Hemoglobin 30.4 PG (26-34); Mean Corpuscular Volume 89.2 fL (80-100); Monocytes Absolute Auto 500 /uL (0-900); Monocytes Percent Auto 6.1 % (3-14); Neutrophils Absolute Auto 4700 /uL (1500-7000); Neutrophils Percent Auto 60.3 % (50-75); Platelet Count 252 X10^3/uL (150-400); Red Blood Cell Count 4.36 X10^6/uL (4.0-5.2); Red Cell Distribution Width 12.9 % (11.6-14.8); White Blood Cell Count 7.8 X10^3/uL (4.5-11.0)
[2024-10-06 02:10] LABS: UR Morphine/Opiate cutoff 300 Negative (Negative); Ur Creatinine Normal (Normal); Ur Specific Gravity Normal (Normal); Urine Amphetamines Positive (Negative); Urine Barbiturates Negative (Negative); Urine Benzodiazepines Negative (Negative); Urine Cocaine Negative (Negative); Urine MDMA Negative (Negative); Urine Methadone Negative (Negative); Urine Methamphetamines Negative (Negative); Urine Oxycodone Negative (Negative); Urine Phencyclidine Negative (Negative); Urine Tetrahydrocannabinol Negative (Negative); Urine Tricyclic Antidepressant Negative (Negative); Urine pH Normal (Normal)
[2024-10-06 02:15] LABS: Alanine Aminotransferase 23 IU/L (<35); Albumin 3.9 g/dL (3.5-5.0); Albumin Globulin Ratio 1.3 (1.0-2.8); Alkaline Phosphatase 93 U/L (38-126); Aspartate Aminotransferase 28 IU/L (14-36); BUN Creatinine Ratio 12.7 (6-22); Bilirubin Total 0.4 mg/dL (0.2-1.3); Blood Urea Nitrogen 9 mg/dL (7-17); Calcium 9.2 mg/dL (8.4-10.2); Carbon Dioxide 24 mmol/L (22-32); Chloride 108 mmol/L (98-107); Estimated Glomerular Filt Rate > 60 mL/min (>60); Ethanol (ETOH) < 10 mg/dL; Glucose 101 mg/dL (70-100); HEMOLYSIS < 15 (0-50); Potassium 3.9 mmol/L (3.4-5.1); Sodium 138 mmol/L (137-145); Total Protein 6.9 g/dL (6.3-8.2)
[2024-10-06 03:06] LABS: COVID19 -Nasal RAPID Negative (Negative)
--- NOTE | 2024-10-06 03:18 | PC.NURSE ---
Patient sleeping comfortably at this time. Sitter at bedside
[2024-10-06 05:26] VITALS: BP 108/56; PULSE 88; RESP 12; TEMP 36.5; O2SAT 96
--- NOTE | 2024-10-06 06:16 | PC.NURSE ---
Patient sleeping with sitter outside of the door
[2024-10-06 08:41] VITALS: BP 101/54; PULSE 82; RESP 17; TEMP 36.8; O2SAT 95
[2024-10-06 12:00] VITALS: BP 132/64; PULSE 80; RESP 18; TEMP 36.6; O2SAT 99
--- NOTE | 2024-10-06 12:20 | PC.NURSE ---
Received call this am from Ana Lilia Leblanc [phone] regarding pt's status. EPOXY COATINGS INSTALLER aware. Patient sleeping [id number], since this RN arrived. EPOXY COATINGS INSTALLER aware, EPOXY COATINGS INSTALLER informed pt of HowardPatricia [place]'s call.
[2024-10-06 14:09] VITALS: BP 125/76; PULSE 80; RESP 18; O2SAT 98
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
== END 2024-10-06 14:09 | disposition home or self-care (01) ==
PROVIDERS: Emergency Medicine; Emergency Provider Emergency Medicine; PCP Registered Nurse Diabetes Educator
DX: R45.851 Suicidal ideations (principal)
CPT/HCPCS: 80053; 80305; 80320; 81003; 84443; 85025; 87635; 93005; 93010; 99284